=== PATIENT | female | born 1985 | race Caucasian/White ===

== ENCOUNTER 2018-04-08 20:25 | Emergency (ER) | payer OTHER ==
[2018-04-08] MEDS: ONDANSETRON (ODT) 4 MG TAB ODT (22:02)
[2018-04-08] MEDS: ACET/BUTAL/CAFF TAB PO (22:02)
[2018-04-08 22:05] LABS: URINE BLOOD (Dip) POC 2+ (NEGATIVE); URINE GLUCOSE (Dip) POC Negative (NEGATIVE); URINE KETONES (Dip) POC Negative (NEGATIVE); URINE LEUKOCYTE EST (Dip) POC Negative (NEGATIVE); URINE NITRITE (Dip) POC Negative (NEGATIVE); URINE TOTAL PROTEIN POC Negative (NEGATIVE)
== END 2018-04-08 22:40 | disposition home or self-care (01) ==
LOC: FTE 20:25
DX: R51 Headache (principal); R11.0 Nausea
CPT/HCPCS: 81003; 81025; 99284